=== PATIENT | female | born 1935 | race Caucasian/White ===

== ENCOUNTER → 2016-10-04 | Outpatient (REF) | payer MEDICARE, MEDICAID ==
[~2016-10-04] MED LIST: LIPI20TA; LISI2.5T; VICO5TAB
== END | disposition home or self-care (01) ==
LOC: M LAB REF 16:30
PROVIDERS: ATTEND Nurse Practitioner Adult Health
DX: M06.4 Inflammatory polyarthropathy (principal)

== ENCOUNTER → 2016-12-14 | Outpatient (REF) | payer MEDICARE, MEDICAID ==
[2016-12-14 17:28] LABS: INR 0.92
== END ==
LOC: M LAB REF 16:43
PROVIDERS: ATTEND Internal Medicine
DX: I35.0 Nonrheumatic aortic (valve) stenosis (principal)

== ENCOUNTER → 2017-02-01 | Outpatient (REF) | payer MEDICARE, MEDICAID ==
[2017-02-01 18:45] LABS: FOLATE 17.6 NG/ML (>5.4); VITAMIN B12 LEVEL 650 PG/ML (247-911)
[2017-02-01 19:06] LABS: ALBUMIN 3.8 GM/DL (3.2-5.2); ALKALINE PHOSPHATASE 72 U/L (45-117); ALT/SGPT 38 U/L (12-78); ANION GAP 17 MEQ/L (8-16); AST/SGOT 40 U/L (15-37); BILIRUBIN,TOTAL 0.6 MG/DL (0.2-1.0); BLOOD UREA NITROGEN 23 MG/DL (7-18); CARBON DIOXIDE LEVEL 27 MEQ/L (21-32); CHLORIDE LEVEL 95 MEQ/L (98-107); CREATININE FOR GFR 1.22 MG/DL (0.55-1.02); GLOMERULAR FILTRATION RATE 44.8 (>32); GLUCOSE, FASTING 193 MG/DL (83-110); SODIUM LEVEL 139 MEQ/L (136-145); TOTAL PROTEIN 7.6 GM/DL (6.4-8.2)
[2017-02-01 19:17] LABS: BASO % 0.4 % (0.0-1.0); EOS # 0.1 K/mm3 (0.0-0.50); EOS % 0.8 % (0.0-3.0); LARGE UNSTAINED CELL # 0.2 K/mm3 (0.0-0.4); LYMPH # 2.3 K/mm3 (1.5-4.5); LYMPH % 19.6 % (24.0-44.0); MEAN CORPUSCULAR HEMOGLOBIN 33.6 pg (27.0-33.0); MEAN CORPUSCULAR HGB CONC 32.5 g/dl (32.0-36.5); MEAN CORPUSCULAR VOLUME 103.6 fl (80.0-96.0); MONO # 0.6 K/mm3 (0.0-0.8); MONO % 5.2 % (0.0-5.0); NEUTROPHILS # 8.4 K/mm3 (1.8-7.7); PLATELET COUNT, AUTOMATED 272 k/mm3 (150-450); RED CELL DISTRIBUTION WIDTH 13.2 % (11.5-14.5); WHITE BLOOD COUNT 11.7 K/mm3 (4.0-10.0)
[2017-02-01 21:41] LABS: ERYTHROCYTE SEDIMENTATION RATE 7 mm/hr (0-30)
[2017-02-05 00:10] LABS: VITAMIN E LEVEL 16.5 mg/L (6.5-21.5)
== END ==
LOC: M LABNEURO 16:58
PROVIDERS: ATTEND Psychiatry & Neurology Neurology
DX: F03.90 Unspecified dementia, unspecified severity, without behavioral disturbance, psychotic disturbance, mood disturbance, and anxiety (principal); Z11.3 Encounter for screening for infections with a predominantly sexual mode of transmission; Z13.29 Encounter for screening for other suspected endocrine disorder

== ENCOUNTER 2018-08-05 17:05 | Emergency (ER) | payer MEDICARE, OTHER, MEDICAID ==
[~2018-08-05] VITALS: Ht 139.7 cm; Wt 63.6 kg
[2018-08-05] MEDS ORDERED: ALBU83IN (17:35)
[2018-08-05] MEDS ORDERED: TRAM50TA2 PO (17:42)
[2018-08-05] MEDS ORDERED: DONETAB6 PO (17:42)
[2018-08-05] MEDS ORDERED: GLIM4TAB PO (17:42)
[2018-08-05] MEDS ORDERED: GABA-843 PO (17:42)
[2018-08-05] MEDS ORDERED: BUPR300T34 PO (17:42)
[2018-08-05] MEDS ORDERED: ASPI1CHW2 PO (17:42)
[2018-08-05] MEDS ORDERED: OLOP1DRO OP (17:45)
[2018-08-05] MEDS ORDERED: LOPE2CA PO (17:45)
[2018-08-05] MEDS ORDERED: ACET500T15 PO (17:45)
[2018-08-05] MEDS ORDERED: ALBUTEROL SULFATE 2.5 MG/0.5 ML INH NEB SOLN NEB ONE (18:00)
--- NOTE | 2018-08-05 18:42 | REPVR ---
EXAM: CT Cervical Spine Without Intravenous Contrast EXAM DATE/TIME: 08/05/2018 5:56 PM CLINICAL HISTORY: 82 years old, female; Injury or trauma; Fall; Initial encounter; Blunt trauma; Additional info: Fall onto face, dementia TECHNIQUE: Axial computed tomography images of the cervical spine without intravenous contrast. All CT scans at this facility use at least one of these dose optimization techniques: automated exposure control; mA and/or kV adjustment per patient size (includes targeted exams where dose is matched to clinical indication); or iterative reconstruction. Coronal and sagittal reformatted images were created and reviewed. COMPARISON: No relevant prior studies available. FINDINGS: Smooth reversal of normal cervical lordosis. No traumatic segmental malalignment of cervical spine or craniocervical junction. Vertebral body height is maintained at all levels. No acute fracture. No destructive or blastic bone lesion. Disc height is decreased at multiple levels, with typical degenerative pattern and associated endplate, articular pillar and uncovertebral spurs. Prevertebral soft tissues demonstrate no abnormality. IMPRESSION: No acute fracture or traumatic subluxation of the cervical spine. Multilevel degenerative disc and articular pillar arthropathy. Electronically signed by: Jaquan Wilkins On 08/05/2018 18:42:24 PM
--- NOTE | 2018-08-05 18:42 | REPVR ---
EXAM: CT Head Without Intravenous Contrast EXAM DATE/TIME: 08/05/2018 5:56 PM CLINICAL HISTORY: 82 years old, female; Injury or trauma; Fall; Initial encounter; Blunt trauma (contusions or hematomas); Additional info: Fall onto face, dementia TECHNIQUE: Axial computed tomography images of the head/brain without intravenous contrast. All CT scans at this facility use at least one of these dose optimization techniques: automated exposure control; mA and/or kV adjustment per patient size (includes targeted exams where dose is matched to clinical indication); or iterative reconstruction. COMPARISON: No relevant prior studies available. FINDINGS: Brain: No acute intracranial hemorrhage. Mild decreased attenuation in periventricular/centrum semiovale white matter. No focal effacement of cortical sulci to indicate acute cortical infarct. Physiologic basal ganglia calcifications are present. Midline shift: No intracranial mass or midline shift. Ventricles: Prominent ventricles and CSF spaces suggest parenchymal volume loss. Bones/joints: No calvarial fracture or destructive process. Sinuses: Visualized paranasal sinuses are unremarkable. Mastoid air cells: Mastoid air cells are normally aerated. Orbits: Visualized globes and orbits are unremarkable. Soft tissues: No focal extracranial soft tissue swelling. IMPRESSION: 1. No acute intracranial abnormality. 2. 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 Electronically signed by: Jaquan Wilkins On 08/05/2018 18:41:50 PM
--- NOTE | 2018-08-05 18:44 | REPVR ---
EXAM: CT Maxillofacial Without Intravenous Contrast EXAM DATE/TIME: 08/05/2018 5:56 PM CLINICAL HISTORY: 82 years old, female; Injury or trauma; Fall; Initial encounter; Blunt trauma (contusions or hematomas); Orbit/periorbital; Bilateral; Additional info: Fall onto face, dementia TECHNIQUE: Axial computed tomography images of the face without intravenous contrast. All CT scans at this facility use at least one of these dose optimization techniques: automated exposure control; mA and/or kV adjustment per patient size (includes targeted exams where dose is matched to clinical indication); or iterative reconstruction. Coronal and sagittal reformatted images were created and reviewed. COMPARISON: No relevant prior studies available. FINDINGS: Mild asymmetric left periorbital soft tissue edema/hematoma is present. Mandible is intact and the TMJ's align normally. Maxilla, hard palate and pterygoid plates are intact. Zygomaticomaxillary complexes and zygomatic arches appear normal. Paranasal sinuses show no acute fracture. Paranasal sinuses show no abnormal opacification. Mastoid air cells are normally aerated. No acute orbital fracture. Orbital soft tissues are unremarkable. No acute nasal bone or nasal septal fracture. Visualized skull base structures are unremarkable. Posterior nasopharynx soft tissues are symmetric. IMPRESSION: Left periorbital facial soft tissue swelling. No acute facial fracture. Electronically signed by: Jaquan Wilkins On 08/05/2018 18:43:38 PM
--- NOTE | 2018-08-05 18:47 | REPVR ---
EXAM: CT Abdomen and Pelvis Without Intravenous Contrast EXAM DATE/TIME: 08/05/2018 5:56 PM CLINICAL HISTORY: 82 years old, female; Injury or trauma; Fall; Initial encounter; Blunt; Generalized; Prior surgery; Surgery date: 6+ months; Additional info: Fall onto face, dementia TECHNIQUE: Axial computed tomography images of the abdomen and pelvis without intravenous contrast. All CT scans at this facility use at least one of these dose optimization techniques: automated exposure control; mA and/or kV adjustment per patient size (includes targeted exams where dose is matched to clinical indication); or iterative reconstruction. Coronal and sagittal reformatted images were created and reviewed. COMPARISON: CT ABD PELVIS W/O CONTRAST 04/22/2012 9:41 PM FINDINGS: ABDOMEN: Limited evaluation without enteric or IV contrast. Images are limited due to patient motion. Limited by artifact from patient being scanned with arms across the upper abdomen. No evidence of basilar lung contusion, aspiration or basilar pneumothorax. No acute displaced fractures involving the imaged lower ribs. No intra-abdominal hematoma. Liver, spleen, pancreas and adrenal glands are unremarkable for noncontrast CT. Gallbladder is surgically absent. Kidneys show no stone or hydronephrosis. No evidence of bowel obstruction, pneumoperitoneum or free abdominal fluid. PELVIS: Limited pelvic evaluation secondary to extensive artifact from hip arthroplasty bilateral. No pelvic hematoma. Atherosclerotic change present in the aorta, without aneurysm. Bladder is unremarkable No acute pelvic fracture. No acute lumbar fracture. Degenerative changes are seen in the lumbar spine with disc height loss. No concerning focal abnormality of the extrinsic soft tissues. 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 Appearance is unchanged since March 2012, with no evidence of an acute periprosthetic fracture involving the acetabular components IMPRESSION: No acute intra-abdominal or pelvic process. Electronically signed by: Jaquan Wilkins On 08/05/2018 18:47:16 PM
[2018-08-05 19:06] VITALS: BP 143/66
[2018-08-05] MEDS ORDERED: DERMABOND TOPICAL SKIN ADHESIVE TOP ONE (19:45)
== END 2018-08-05 20:51 | disposition home or self-care (01) ==
LOC: M ED 17:05
DX: S01.112A Laceration without foreign body of left eyelid and periocular area, initial encounter (principal); S05.12XA Contusion of eyeball and orbital tissues, left eye, initial encounter; S80.212A Abrasion, left knee, initial encounter; W01.10XA Fall on same level from slipping, tripping and stumbling with subsequent striking against unspecified object, initial encounter; Y92.099 Unspecified place in other non-institutional residence as the place of occurrence of the external cause; Y93.9 Activity, unspecified; Y99.9 Unspecified external cause status; E11.9 Type 2 diabetes mellitus without complications; I10 Essential (primary) hypertension; M50.30 Other cervical disc degeneration, unspecified cervical region; M46.92 Unspecified inflammatory spondylopathy, cervical region; Z79.82 Long term (current) use of aspirin; Z79.899 Other long term (current) drug therapy

== ENCOUNTER → 2019-02-02 | Outpatient (REF) | payer MEDICARE, MEDICAID ==
[~2019-02-02] MED LIST changes: +ACET500T15 PO; +ALBU83IN; +ASPI1CHW2 PO; +BUPR300T34 PO; +DONETAB6 PO; +GABA-843 PO; +GLIM4TAB PO; +LOPE2CA PO; +OLOP0.1D OP; +TRAM50TA2 PO
== END ==
LOC: M LAB REF 08:58
PROVIDERS: ATTEND Internal Medicine
DX: R19.7 Diarrhea, unspecified (principal)

== ENCOUNTER → 2019-05-31 | Outpatient (REF) | payer MEDICARE, MEDICAID | LOC: M LAB REF 10:00 | PROVIDERS: ATTEND Internal Medicine | DX: K58.0 Irritable bowel syndrome with diarrhea (principal) ==

== ENCOUNTER → 2019-07-15 | Outpatient (REF) | payer MEDICARE ==
[~2019-07-15] MED LIST changes: -GLIM4TAB PO; +GLIM4TAB3 PO
== END ==
LOC: M LAB REF 16:53
PROVIDERS: ATTEND Internal Medicine
DX: M06.4 Inflammatory polyarthropathy (principal)

== ENCOUNTER 2019-10-16 15:42 | Emergency (ER) | payer MEDICARE ==
[~2019-10-16] VITALS: Ht 137.2 cm; Wt 61.4 kg
[~2019-10-16 15:42] MED LIST changes: -BUPR300T34 PO; +BUPR300T92 PO; -GLIM4TAB3 PO; +GLIM4TAB5 PO
[2019-10-16 17:18] LABS: BASO % 0.5 % (0.0-1.0); EOS # 0.2 10^3/uL (0.0-0.5); EOS % 2.5 % (0.0-3.0); HEMATOCRIT 47.3 % (36.0-47.0); HEMOGLOBIN 14.5 g/dl (12.0-15.5); LYMPH % 33.5 % (24.0-44.0); MEAN CORPUSCULAR HEMOGLOBIN 30.1 pg (27.0-33.0); MEAN CORPUSCULAR HGB CONC 30.7 g/dl (32.0-36.5); MEAN CORPUSCULAR VOLUME 98.3 fl (80.0-96.0); MONO # 0.9 10^3/uL (0.0-0.8); MONO % 9.8 % (0.0-5.0); NEUTROPHILS # 4.7 10^3/uL (1.5-8.5); NEUTROPHILS % 53.4 % (36.0-66.0); PLATELET COUNT, AUTOMATED 272 10^3/uL (150-450); RED BLOOD COUNT 4.81 10^6/uL (4.00-5.40); WHITE BLOOD COUNT 8.8 10^3/uL (4.0-10.0)
[2019-10-16 17:41] LABS: BLOOD UREA NITROGEN 15 MG/DL (7-18); CALCIUM LEVEL 9.1 MG/DL (8.8-10.2); CARBON DIOXIDE LEVEL 30 MEQ/L (21-32); CHLORIDE LEVEL 107 MEQ/L (98-107); GLOMERULAR FILTRATION RATE > 60.0 (>32); GLUCOSE, FASTING 82 MG/DL (70-100); POTASSIUM SERUM 5.1 MEQ/L (3.5-5.1); SODIUM LEVEL 142 MEQ/L (136-145)
[2019-10-16] MEDS ORDERED: NS 1,000 ML IV SCH (18:03)
[2019-10-16 18:47] LABS: ALBUMIN 3.5 GM/DL (3.2-5.2); ALT/SGPT 24 U/L (12-78); BILIRUBIN,DIRECT < 0.1 MG/DL (0.0-0.2); BILIRUBIN,TOTAL 1.1 MG/DL (0.2-1.0); TOTAL PROTEIN 7.2 GM/DL (6.4-8.2)
--- NOTE | 2019-10-16 19:38 | REPVR ---
PROCEDURE INFORMATION: Exam: US Pelvis Complete, Transabdominal and US Pelvis, Transvaginal Exam date and time: 10/16/2019 7:14 PM Age: 84 years old Clinical indication: Other: Vaginal bleeding TECHNIQUE: Imaging protocol: Real-time transabdominal and transvaginal pelvic ultrasound (complete) with image documentation. Transvaginal imaging was used for better evaluation of the endometrium and adnexa. COMPARISON: CT ABD PELVIS W/O CONTRAST 08/05/2018 6:08 PM FINDINGS: Uterus/cervix: Uterus measures 7.8 x 4 x 5.1 cm. Endometrial echo complex measures 31 mm. Visualization of the endometrial cavity was limited due to patient immobility. Finding is worrisome for an endometrial mass. Further evaluation suggested. Right adnexa: Right ovary obscured by overlying bowel gas. Left adnexa: Left ovary obscured by overlying bowel gas. Free fluid: None. Bladder: Normal. IMPRESSION: 1. Endometrial echo complex measures 31 mm. Visualization of the endometrial cavity was limited due to patient immobility. Finding is worrisome for an endometrial mass. Further evaluation suggested. 2. Nonvisualized ovaries as described above. Electronically signed by: Natan Perales On 10/16/2019 19:38:11 PM
[2019-10-16] MEDS ORDERED: ISOVUE-370 76% 100ML VIAL (Q9967) As Ordered ONE (19:47)
[2019-10-16 20:00] LABS: INR 1.07; PARTIAL THROMBOPLASTIN TIME 28.9 SECONDS (25.0-38.4); PROTHROMBIN TIME 13.6 SECONDS (11.8-14.0)
--- NOTE | 2019-10-16 20:19 | REPVR ---
PROCEDURE INFORMATION: Exam: CT Abdomen And Pelvis With Contrast Exam date and time: 10/16/2019 7:57 PM Age: 84 years old Clinical indication: Condition or disease; Other: Pelvic mass TECHNIQUE: Imaging protocol: Computed tomography of the abdomen and pelvis with intravenous contrast. Radiation optimization: All CT scans at this facility use at least one of these dose optimization techniques: automated exposure control; mA and/or kV adjustment per patient size (includes targeted exams where dose is matched to clinical indication); or iterative reconstruction. Contrast material: ISOVUE 370; Contrast volume: 100 ml; Contrast route: IV; COMPARISON: CT ABD PELVIS W/O CONTRAST 08/05/2018 6:08 PM FINDINGS: Lungs: Mild basilar atelectasis. Liver: There is a diffuse decrease in hepatic parenchymal density, consistent with fatty infiltration. Gallbladder and bile ducts: There has been a cholecystectomy. Pancreas: Normal. No ductal dilation. Spleen: Normal. No splenomegaly. Adrenals: Normal. No mass. Kidneys and ureters: Normal. No hydronephrosis. Stomach and bowel: Mild diverticulosis is present in the distal left colon. No diverticulitis. Appendix: No evidence of appendicitis. Intraperitoneal space: Unremarkable. No free air. No significant fluid collection. Vasculature: Unremarkable. No abdominal aortic aneurysm. Lymph nodes: Unremarkable. No enlarged lymph nodes. Bladder: Unremarkable as visualized. Reproductive: Redemonstration of a widened endometrial cavity measuring 3.1 cm sagittally. Findings highly suspicious for an endometrial mass. Endometrial biopsy suggested. Bones/joints: Status post bilateral total hip replacement. Grade 2 anterolisthesis of L4 on L5, degenerative. Mild central spinal stenosis L2-L3, severe central spinal stenosis L3-L4 and L4-L5. Soft tissues: Unremarkable. IMPRESSION: 1. There is a diffuse decrease in hepatic parenchymal density, consistent with fatty infiltration. 2. There has been a cholecystectomy. 3. Mild diverticulosis is present in the distal left colon. No diverticulitis. 4. Redemonstration of a widened endometrial cavity measuring 3.1 cm sagittally. Findings highly suspicious for an endometrial mass. Endometrial biopsy suggested. Electronically signed by: Natan Perales On 10/16/2019 20:19:02 PM
[2019-10-16 21:01] VITALS: BP 136/64
--- NOTE | 2019-10-18 09:24 | ED PDOC ---
Post-Departure Follow-Up eddie flores and brenda faxed formal report ofpelvic us for Usama Joseph MD Oct 18, 2019 09:24
--- NOTE | 2019-10-18 09:26 | ED PDOC ---
Post-Departure Follow-Up dr flores and dr gutierrez faxed formal report of ct abd/p for fu Usama Lackey MD Oct 18, 2019 09:26
== END 2019-10-16 21:04 | disposition home or self-care (01) ==
LOC: M ED 15:42
DX: N93.9 Abnormal uterine and vaginal bleeding, unspecified (principal); N85.8 Other specified noninflammatory disorders of uterus; E11.9 Type 2 diabetes mellitus without complications; I10 Essential (primary) hypertension; F03.90 Unspecified dementia, unspecified severity, without behavioral disturbance, psychotic disturbance, mood disturbance, and anxiety; K21.9 Gastro-esophageal reflux disease without esophagitis; Z79.899 Other long term (current) drug therapy; Z79.82 Long term (current) use of aspirin
CPT/HCPCS: 36415; 74177; 76830; 76856; 80048; 80076; 85025; 85610; 85730; 86850; 86900; 86901; 99284; Q9967